=== PATIENT | male | born 1965 | race Hispanic/Latino ===

== ENCOUNTER 2018-06-06 18:30 | Emergency (ER) | payer SELFPAY ==
--- NOTE | 2018-06-06 20:00 | RAD ---
LEFT FEMUR TWO VIEWS: HISTORY: The patient fell at work and now has pain. FINDINGS: An intramedullary aliyah stabilizes an old mid shaft femoral fracture in place. In reviewing a 09/22/19 08 study, there was a more acute transversely oriented fracture, which is probably more of a stress t ype fracture, also seen in the mid shaft of the humerus. This fracture line is still visible but def initely improved, and it probably just represents residual change. I do not think this represents an y type of acute injury. IMPRESSION: No acute findings. POS: PHILIPPE
--- NOTE | 2018-06-06 21:14 | RAD ---
PORTABLE CHEST: HISTORY: The patient was knocked down at work and now has left-sided pain. FINDINGS: Heart size is borderline. There is some subsegmental atelectatic change in the lung bases. I do not see any definitive rib fractures. Questionable slight irregularity to the posterior sixth rib. Thi s may be related to an acute injury but could be old. No signs of failure. IMPRESSION: 1. Borderline heart size. 2. Slight deformities to the posterior right sixth rib, questionably related to a fracture. It is d ifficult to assess on this examination. If indicated, rib films may be helpful. POS: PHILIPPE
[2018-06-06 21:24] LABS: #Eosinphils 0.1 thou/uL (0.0-0.7); #Monocytes 0.4 thou/uL (0.11-0.59); #Neutrophils 6.1 thou/uL (1.40-6.50); %Basophils 0.6 % (0.0-1.0); %Eosinophils 0.7 % (0.0-10.0); %Lymphocytes 13.6 % (21.0-51.0); %Monocytes 5.7 % (0.0-10.0); %Neutrophils 79.5 % (42.0-75.0); Hemoglobin 13.9 g/dL (14.0-18.0); Mean Corpuscular Hemoglobin 31.3 pg (27.0-31.0); Mean Platelet Volume 8.1 fL (7.4-10.4); Platelet Count 231 thou/uL (130-400); RBC Distribution Width 12.7 % (11.5-14.5); Red Blood Cell (RBC) Count 4.45 mill/uL (4.70-6.10); White Blood Cell (WBC) Count 7.6 thou/uL (4.8-10.8)
[2018-06-06 21:32] LABS: ALT (SGPT) 13 U/L (8-55); AST (SGOT) 14 U/L (5-34); Albumin 4.2 g/dL (3.5-5.0); Alkaline Phosphatase 98 U/L (40-150); Anion Gap 15 mmol/L (10-20); BUN (Urea Nitrogen) 9 mg/dL (8.4-25.7); Bilirubin, Total 0.8 mg/dL (0.2-1.2); CK (CPK) 94 U/L (30-200); Calc. Creatinine Clearance 0 mL/min (70-130); Calcium 9.1 mg/dL (7.8-10.44); Carbon Dioxide 21 mmol/L (22-29); Chloride 105 mmol/L (98-107); Estimated GFR-MDRD Greater than 90; Globulin 3.9 g/dL (2.4-3.5); Glucose 114 mg/dL (70-105); Potassium 3.6 mmol/L (3.5-5.1); Protein, Total 8.1 g/dL (6.0-8.3); Sodium 137 mmol/L (136-145)
--- NOTE | 2018-06-06 22:58 | CT ---
CT LEFT HIP: HISTORY: Trauma with left hip pain. TECHNIQUE: Axial images are obtained with coronal reconstructed images. FINDINGS: Images demonstrate a large intraosseous femoral nail across the proximal mid and distal aspect of the left femur. This appears to be an old femoral fracture, which has been stabilized. The fracture is healed at this time. No evidence of acute left hip fracture is seen. IMPRESSION: Old surgical hardware in the proximal and mid left femur with healed left femoral fracture. No evide nce of acute femoral abnormality seen. POS: MARGARETTE
== END 2018-06-06 23:26 | disposition home or self-care (01) ==
LOC: ERS 18:30
DX: M79.652 Pain in left thigh (principal); W19.XXXA Unspecified fall, initial encounter
CPT/HCPCS: 71045; 80053; 82550; 85025; 93005; 96374; J2270

== ENCOUNTER 2022-09-14 09:30 | Emergency (ER) | payer OTHER | END 2022-09-14 12:32 | disposition home or self-care (01) | LOC: ERS 09:30 | DX: S22.41XA Multiple fractures of ribs, right side, initial encounter for closed fracture (principal); W19.XXXA Unspecified fall, initial encounter ==